=== PATIENT | female | born 1960 | race Two or more races ===

== ENCOUNTER 2016-10-09 22:04 | Emergency (ER) | payer MEDICARE, MEDICAID ==
[~2016-10-09] VITALS: Ht 157.5 cm; Wt 81.6 kg
[~2016-10-09 22:04] MED LIST: ASPI81TA31 PO; ATEN50TA PO; COREG PO; FOLI1TAB16 PO
[2016-10-09] MEDS ORDERED: diphenhydrAMINE 25 MG CAP PO ONE ×2 (22:30→22:42)
--- NOTE | 2016-10-09 22:50 | NUR ---
Patient discharged to home in stable conditon. Written and verbal after care instructions given. Patient verbalizes understanding of instructions.
[2016-10-09 22:51] VITALS: BP 144/78
== END 2016-10-09 22:52 | disposition home or self-care (01) ==
LOC: ER 22:05
DX: T14.8 Other injury of unspecified body region (principal); I10 Essential (primary) hypertension; Z90.710 Acquired absence of both cervix and uterus; Z88.8 Allergy status to other drugs, medicaments and biological substances; W57.XXXA Bitten or stung by nonvenomous insect and other nonvenomous arthropods, initial encounter; Y93.89 Activity, other specified; Y99.8 Other external cause status; Y92.89 Other specified places as the place of occurrence of the external cause
CPT/HCPCS: 99282; A4663; Q0163

== ENCOUNTER 2019-03-04 14:42 | Emergency (ER) | payer MEDICARE, MEDICAID ==
[~2019-03-04] VITALS: Ht 157.5 cm; Wt 81.6 kg
--- NOTE | 2019-03-04 14:50 | NUR ---
PT IS IN ROOM #2A. DR VAZQUEZ EVALUATED THE PT.
[2019-03-04] MEDS ORDERED: HYDROCODONE/APAP 5-325MG TABLET ONE (14:52)
[2019-03-04] MEDS ORDERED: TDAP DIPH,PERTUSS,TET VAC/PF 0.5 ML DISP.SYRIN IM ONE ×2 (14:55→15:00)
[2019-03-04] MEDS ORDERED: HYDROCODONE/APAP 5-325MG TABLET PO ONE (15:00)
--- NOTE | 2019-03-04 15:35 | NUR ---
PATIENT BACK FROM CT. NOTED NOT IN ANY DISTRESS. A & O X4
--- NOTE | 2019-03-04 16:19 | NUR ---
PT WAS D/C'D TO HOME. D/C INSTRUCTIONS GIVEN TO THE PT AND TO HER FAMILY.
[2019-03-04 16:22] VITALS: BP 138/79
== END 2019-03-04 16:35 | disposition home or self-care (01) ==
LOC: ER 14:42
DX: S00.83XA Contusion of other part of head, initial encounter (principal); S80.211A Abrasion, right knee, initial encounter; S49.91XA Unspecified injury of right shoulder and upper arm, initial encounter; I10 Essential (primary) hypertension; Z90.710 Acquired absence of both cervix and uterus; Z91.041 Radiographic dye allergy status; W10.8XXA Fall (on) (from) other stairs and steps, initial encounter; Y93.89 Activity, other specified; Y92.89 Other specified places as the place of occurrence of the external cause; Y99.8 Other external cause status
CPT/HCPCS: 70450; 70486; 72125; 73030; 73060; 90715; A4663

== ENCOUNTER 2024-06-26 17:33 | Emergency (ER) | payer MEDICARE, OTHER ==
[~2024-06-26] VITALS: Ht 157.5 cm; Wt 79.8 kg
[~2024-06-26 17:33] MED LIST changes: -FOLI1TAB16 PO; +FOLI1TAB94 PO
[2024-06-26 18:18] LABS: *BILIRUBIN,URIN NEGATIVE (NEGATIVE); *BLOOD, URINE NEGATIVE (NEGATIVE); *CLARITY,URINE CLEAR (CLEAR); *COLOR,URINE YELLOW (YELLOW); *KETONES,URINE NEGATIVE (NEGATIVE); *PROTEIN,URINE NEGATIVE (NEGATIVE); *UROBILINOGEN,URINE 0.2 E.U./dl (NORMAL); LEUKOCYTE ESTERASE ,URINE TRACE (NEGATIVE); NITRITE, URINE NEGATIVE (NEGATIVE); UGLUCOSE NEGATIVE (NEGATIVE)
[2024-06-26 18:30] LABS: RBC,URINE NONE SEEN /HPF (0-3)
[2024-06-26 18:31] LABS: BACTERIA,URINE NONE SEEN /HPF (NONE SEEN); SQUAMOUS EPITHELIAL CELL,UR FEW /HPF (NONE SEEN); WBC,URINE 0-3 /HPF (0-3)
[2024-06-26] MEDS ORDERED: diphenhydrAMINE 50 MG CAPSULE ONE (19:53)
[2024-06-26] MEDS: diphenhydrAMINE 50 MG CAPSULE PO ONE (19:57)
[2024-06-26] MEDS ORDERED: ASPIRIN 81 MG TAB.CHEW ONE (19:58)
[2024-06-26] MEDS ORDERED: predniSONE 20 MG TABLET ONE (19:58)
[2024-06-26 20:00] LABS: BASOPHILS % (AUTO) 0.4 % (0.0-2.0); EOSINOPHILS # (AUTO) 0.1 K/uL (0.0-0.7); EOSINOPHILS % (AUTO) 1.9 % (0.0-7.0); HEMATOCRIT 38.7 % (31.2-41.9); LYMPHOCYTES # (AUTO) 1.7 K/uL (0.8-4.8); LYMPHOCYTES % (AUTO) 25.1 % (20.5-51.5); MEAN CORPUSCULAR HEMOGLOBIN 29.3 uug (24.7-32.8); MEAN CORPUSCULAR HGB CONC 34 g/dL (32.3-35.6); MEAN CORPUSCULAR VOLUME 87.5 fL (75.5-95.3); MONOCYTES # (AUTO) 0.7 K/uL (0.1-1.30); MONOCYTES % (AUTO) 10.5 % (0.0-11.0); NEUTROPHILS # (AUTO) 4.1 K/uL (1.8-8.9); NEUTROPHILS % (AUTO) 62.1 % (38.5-71.5); PLATELET COUNT (AUTO) 142 K/uL (179-408); RED BLOOD CELL COUNT(AUTO) 4.43 MIL/uL (3.63-4.92); RED CELL DISTRIBUTION WIDTH 14.2 % (12.3-17.7); WHITE BLOOD COUNT (AUTO) 6.6 K/uL (3.8-11.8)
[2024-06-26 20:04] LABS: DIFFERENTIAL COMMENT 1
[2024-06-26] MEDS: ASPIRIN 81 MG TAB.CHEW PO ONE (20:05)
[2024-06-26] MEDS: predniSONE 20 MG TABLET PO ONE (20:05)
[2024-06-26 20:10] LABS: CALCIUM 8.6 mg/dL (8.5-10.1); CARBON DIOXIDE 22 mmol/L (21-32); CHLORIDE 109 mmol/L (98-107); CREATININE 0.7 mg/dL (0.6-1.3); GLUCOSE 99 mg/dL (74-106); POTASSIUM 4.1 mmol/L (3.5-5.1); SODIUM SERUM 142 mmol/L (136-145); UREA NITROGEN, BLOOD 16 mg/dL (7-18)
[2024-06-26 20:15] LABS: ALANINE AMINOTRANSFERASE 33 U/L (14-59); ALBUMIN 3.3 g/dL (3.4-5.0); ALKALINE PHOSPHATASE 106 U/L (50-136); ASPARTATE AMINOTRANSFERASE 23 U/L (15-37); BILIRUBIN,DIRECT 0.1 mg/dL (0.0-0.2); BILIRUBIN,TOTAL 0.6 mg/dL (0.2-1.0); TOTAL PROTEIN, SERUM 6.6 g/dL (6.4-8.2)
[2024-06-26 23:08] VITALS: BP 126/71; O2SAT 97
== END 2024-06-26 22:37 | disposition home or self-care (01) ==
LOC: ER 17:33
DX: T78.3XXA Angioneurotic edema, initial encounter (principal); H92.01 Otalgia, right ear; I10 Essential (primary) hypertension; I25.2 Old myocardial infarction; Z79.82 Long term (current) use of aspirin; Z79.899 Other long term (current) drug therapy; Z88.8 Allergy status to other drugs, medicaments and biological substances; Z90.710 Acquired absence of both cervix and uterus; Z91.041 Radiographic dye allergy status; Z95.5 Presence of coronary angioplasty implant and graft; Y84.8 Other medical procedures as the cause of abnormal reaction of the patient, or of later complication, without mention of misadventure at the time of the procedure; Y82.8 Other medical devices associated with adverse incidents
CPT/HCPCS: 36415; 84484; 85025; A4606; A4663; J7512; Q0163